=== PATIENT | female | born 1990 | race Two or more races ===

== ENCOUNTER 2022-07-10 00:59 | Emergency (ER) | payer MEDICAID, OTHER ==
[~2022-07-10] VITALS: Ht 160 cm; Wt 68.0 kg
[2022-07-10 01:40] VITALS: BP 140/83
== END 2022-07-10 06:59 | disposition left against medical advice (07) ==
LOC: ER 00:59
DX: M54.50 Low back pain, unspecified (principal); R11.2 Nausea with vomiting, unspecified; Z53.21 Procedure and treatment not carried out due to patient leaving prior to being seen by health care provider; W18.39XA Other fall on same level, initial encounter; Y93.89 Activity, other specified; Y92.89 Other specified places as the place of occurrence of the external cause; Y99.8 Other external cause status

== ENCOUNTER 2023-05-16 18:22 | Emergency (ER) | payer MEDICAID ==
[~2023-05-16] VITALS: Ht 160 cm; Wt 75.0 kg
[2023-05-16 18:43] VITALS: BP 136/96; PULSE 79; RESP 16; O2SAT 98
== END 2023-05-16 21:30 | disposition left against medical advice (07) ==
LOC: ER 18:22
DX: R51.9 Headache, unspecified (principal); H53.8 Other visual disturbances; R42 Dizziness and giddiness; Z53.21 Procedure and treatment not carried out due to patient leaving prior to being seen by health care provider